=== PATIENT | female | born 1995 | race Caucasian/White ===

== ENCOUNTER → 2017-02-20 | Outpatient (CLI) | payer BC | LOC: BMCIMAGING 15:03 | PROVIDERS: ATTEND Registered Nurse General Practice | DX: R22.9 Localized swelling, mass and lump, unspecified (principal) ==

== ENCOUNTER 2017-09-24 08:16 | Day surgery (SDC) | payer BC ==
[2017-09-24] MEDS ORDERED: LR 1,000 ML IV ONE (08:37)
[2017-09-24] MEDS ORDERED: LIDOCAINE 1% 2 ML INJ ID PRN (08:37)
[2017-09-24 09:04] VITALS: PULSE 105
[2017-09-24] MEDS ORDERED: BUPIVACAINE 0.5% 30 ML SDV ONE (10:05)
[2017-09-24] MEDS ORDERED: PROPOFOL 200 MG/20 ML VIAL ONE ×5 (10:54→13:05)
[2017-09-24] MEDS ORDERED: fentaNYL 100 MCG/2 ML INJ ONE (10:54)
[2017-09-24] MEDS ORDERED: MIDAZOLAM 2 MG/2 ML VIAL ONE ×2 (11:10→11:25)
[2017-09-24] MEDS ORDERED: MIDAZOLAM 2 MG/2 ML VIAL IVP ONE (11:15)
--- NOTE | 2017-09-24 11:15 | PDANEPAE ---
ANE History of Present Illness Radial nerve release, R ANE Past Medical History - Cardiovascular History Hx Hypertension: No Hx Arrhythmias: No Hx Chest Pain: No Hx Coronary Artery / Peripheral Vascular Disease: No Hx CHF / Valvular Disease: No Hx Palpitations: No - Pulmonary History Hx COPD: No Hx Asthma/Reactive Airway Disease: No Hx Recent Upper Respiratory Infection: No Hx Oxygen in Use at Home: No Hx Sleep Apnea: No Sleep Apnea Screening Result - Last Documented: Negative - Neurologic History Hx Cerebrovascular Accident: No Hx Seizures: No Hx Dementia: No - Endocrine History Hx Diabetes: No Obesity: mild - Renal History Hx Renal Disorders: No - Liver History Hx Hepatic Disorders: No - Neurological & Psychiatric Hx Hx Neurological and Psychiatric Disorders: No - Cancer History Hx Cancer: No - Congenital Disorder History Hx Congenital Disorders: No - GI History GERD: no Hx Gastrointestinal Disorders: No - Other Health History Other Health History: Wartenberg syndrome-R wrist pain - Chronic Pain History Chronic Pain: No - Surgical History Prior Surgeries: mole excised L arm at plastic surgeon's office (local) ANE Review of Systems Review of Systems: - Exercise capacity METS (RN): 5 METS ANE Patient History - Allergies Allergies/Adverse Reactions: No Known Allergies Allergy (Verified 09/23/17 17:53) - NPO status NPO Since - Liquids (Date): 09/24/17 NPO Since - Liquids (Time): 06:30 NPO Since - Solids (Date): 09/23/17 NPO Since - Solids (Time): 20:00 - Anes Hx Hx Anesthesia Complications (with details): no prior general anesthesia - Smoking Hx Smoking Status: Never smoked Marijuana use: No - Alcohol Use Alcohol Use: Occasionally (1 drink/week) - Family Anes Hx Family Anes Hx: none Family Hx Anesthesia Complications: none ANE Labs/Vital Signs - Vital Signs Blood Pressure: 125/86 Heart Rate: 105 Respiratory Rate: 20 O2 Sat (%): 96 Height: 167.64 cm Weight: 77.111 kg ANE Physical Exam - Airway Neck exam: FROM Mallampati Score: Class 1 Mouth exam: normal dental/mouth exam (R upper front crown) - Pulmonary Pulmonary: clear to auscultation - Cardiovascular Cardiovascular: regular rate and rhythym - ASA Status ASA Status: I ANE Anesthesia Plan Regional Anesthesia: single shot NB (axillary BP nerve block)
[2017-09-24] MEDS ORDERED: LIDOCAINE 2% 5 ML SDV ONE ×4 (11:17)
[2017-09-24] MEDS ORDERED: DEXAMETHASONE 4 MG/ML VIAL IVP PRN (13:22)
[2017-09-24] MEDS ORDERED: NALOXONE HCL 0.4 MG/ML INJ IVP PRN (13:22)
[2017-09-24] MEDS ORDERED: fentaNYL 100 MCG/2 ML INJ IVP PRN (13:22)
--- NOTE | 2017-09-24 14:01 | POSTANESTH ---
Post Anesthetic Evaluation Cardiovascular Status: Normal, Stable Respiratory Status: Normal, Stable Level of Consciousness/Mental Status: Can Participate in Eval Pain Control: Adequate, Prn Tx Ordered Nausea/Vomiting Control: Adequate, Prn Tx Ordered Complications Possibly Related to Anesthesia: None Noted
[2017-09-24 14:32] VITALS: TEMP 97.7
[2017-09-24 14:50] VITALS: BP 127/80; RESP 18; O2SAT 95
--- NOTE | 2017-09-25 10:25 | GOP ---
[f rep st] OPERATIVE REPORT DATE OF OPERATION: SURGEON: Rick Mas MD ANESTHESIA: Brachial plexus block and MAC. PREOPERATIVE DIAGNOSIS: 1. De Quervain syndrome. 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 POSTOPERATIVE DIAGNOSIS: 1. De Quervain syndrome. 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 PROCEDURE PERFORMED: FINDINGS: ESTIMATED BLOOD LOSS: 5 cc. INDICATIONS: The patient is a 22-year-old female who initially presented to the clinic with pain ove r the radial side of her hand and wrist. 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 On examination, the patient had a Tinel in the midfor earm at the approximate site where the pierces the fascia. Patient has tenderness over th e 1st dorsal compartment. She had some relief with an injection over the first dorsal compartment; h owever, she had persistent symptoms. Carpal tunnel injection did not help her symptoms. EMG did not show a compression in the cervical spine, did not show any compression in the carpal tunnel, and shahnaz gnostic injection at the site of her max Tinel relieved her symptoms completely for 24 hours. She wa s thus diagnosed with Wartenberg syndrome, along with a de Quervain syndrome which had failed conserv ative treatment. The symptoms were affecting her school work, as she was having a lot of difficulty writing. She was thus indicated for operative management. I discussed with the patient at length th e risks and benefits of surgery. The risks of surgery include pain, bleeding, infection, worsening o r persistent pain, damage to surrounding structures, need for further or secondary procedures. She u nderstood the risks and wished to proceed. DESCRIPTION OF PROCEDURE: The patient was seen in the preoperative holding area. She was allowed to ask any questions and all of her questions were answered. Consent was signed. Site was marked. Sh jeniffer did not have a distinct Tinel today; however, she continued to have a lot of pain in the forearm to palpation and had previous Tinel and the area of max pain was marked. She was then taken to the ope rative suite. Care was taken to transfer her from the gurney to the operating table. Care was taken to pad all bony prominences. Upper extremity was prepped and draped in the usual sterile fashion. Esmarch was used to exsanguinate the right upper extremity and the tourniquet was inflated to 250 mmH g. Time-out was called including surgical and anesthesia teams, confirming the surgical site and the procedure to be performed. We first performed the de Quervain's portion of the procedure and approx imately 2 cm long incision just 1 cm proximally from the radial styloid was made in the wrist. Small branches of the distal branch of the radial nerve were identified here and they were protected at al l times, taking care to gently retract the sheath over the 1st dorsal compartment was identified. Th is was longitudinally incised at its dorsal margin with a knife. The EPB and the EPL were taken out of the sheath. There was some synovitis which was sheath of the EPL. carefull y dissected down protecting all vital structures. The ECRL and brachioradialis tendons we re identified. The nerve could be seen piercing the fascia between the 2 tendons. It was followed d istally and care was taken to ensure it was completely free distally. Proximally, lifting up the bra chioradialis tendon, it was clear that the nerve was at this point essentially scarred down to it and the brachioradialis tendon had immense amount of tension and pressure over the nerve. This was meti culously dissected away from the brachioradialis tendon, taking care to protect that nerve. The tend on was lifted up and was dissected free from its underside and then proximally. Care was taken to en sure that it was completely freed up. At this point, the tendon back down, there was cam rly a lot of pressure. The tendon was sliding onto the nerve and decision was made to perform a rele asing of pressure over the nerve. The tendon was under quite dramatic tension, resulting in . This was tendon potential recurrent scarring and decision was ma de to use NeuraGen tube, which was available, to wrap the nerve at that point where it was vulnerable to scarring to prevent this in the future. A 3 mm tube was used. This was to use as a n erve wrap, as per the Neuro[employer] specifications for the nerve wraps. This was then wrapped around the nerve and the 2-0 nylon sutures were then used to tag the tendons back together. Care was then taken to ensure the nerve itself was not violated, with the nerve wrapped in place. The tourniquet was le t down. All bleeding was controlled. All wounds were closed in layered fashion with a 4-0 Monocryl. Sterile dressing was applied. Patient was placed in thumb spica splint, awakened from sedation and taken to the PACU in stable condition. POSTOPERATIVE CONDITION: Stable. POSTOPERATIVE PLAN: The patient will follow up in the clinic in 10 to 14 days. She ; dunham gopal, no strenuous activity for the next approximately a month, and decision will be made whether she . Continue to work on movement of her wrist and fingers. /[id number]/MODL
== END 2017-09-24 14:49 | disposition home or self-care (01) ==
LOC: FSGY 08:16
PROVIDERS: ATTEND Orthopaedic Surgery Hand Surgery
PROC: 01Q60ZZ Repair Radial Nerve, Open Approach (ICD-10-PCS; principal; 2017-09-24 10:15)
DX: M65.4 Radial styloid tenosynovitis [de Quervain] (principal); G58.9 Mononeuropathy, unspecified
CPT/HCPCS: C9352; J0171; J2250; J2704; J3010

== ENCOUNTER → 2017-11-22 | Outpatient (CLI) | payer BC | LOC: FIMAGING 15:35 | PROVIDERS: ATTEND Obstetrics & Gynecology | DX: Z03.89 Encounter for observation for other suspected diseases and conditions ruled out (principal) ==

== ENCOUNTER → 2018-08-08 | Outpatient (CLI) | payer BC ==
[~2018-08-08] MED LIST: GADOBUTROL 10 ML VIAL IVP ONE
== END ==
LOC: FIMAGING 06:44
PROVIDERS: ATTEND Orthopaedic Surgery Hand Surgery
DX: M25.531 Pain in right wrist (principal); I77.9 Disorder of arteries and arterioles, unspecified
CPT/HCPCS: A9585

== ENCOUNTER → 2018-09-04 | Outpatient (CLI) | payer BC | LOC: FIMAGING 16:13 | PROVIDERS: ATTEND Obstetrics & Gynecology | DX: R10.2 Pelvic and perineal pain (principal); Z97.5 Presence of (intrauterine) contraceptive device ==

== ENCOUNTER 2018-09-08 15:45 | Observation (INO) | payer BC ==
[~2018-09-08 15:45] MED LIST changes: -GADOBUTROL 10 ML VIAL IVP ONE; +IOPAMIDOL (ISOVUE-300) 100 ML BTL ONE
[2018-09-08] MEDS ORDERED: ONDANSETRON 4 MG/2 ML VIAL ONE ×3 (16:09→19:16)
--- NOTE | 2018-09-08 16:10 | EDPHY ---
General - History Smoking Status: Never smoked Time Seen by Provider: 09/08/18 16:03 Narrative: CHIEF COMPLAINT: Abdominal pain, nausea vomiting HISTORY OF PRESENT ILLNESS: Patient presents with complaints of abdominal pain, nausea vomiting the past few days with a reportedly positive CT scan prior to arrival. She has had right -sided abdominal pain for 2-3 days. It has been steadily worsening, now severe , 9/10. Associated with nausea and 1 episode of vomiting last night. Associated with decreased appetite. No fever. No chest pain shortness of breath. She saw her primary care physician, and laboratory studies, ultrasound and CT scan were performed earlier today. CT scan results include acute appendicitis with possible rupture. She was contacted by her primary care physician to return here for surgical intervention. She has no previous abdominal surgeries. REVIEW OF SYSTEMS: 10 systems were reviewed and negative with the exception of the elements mentioned in the history of present illness. PCP: Dr. Dee Sanders SPECIALISTS: None PAST MEDICAL HISTORY: PCOS PAST SURGICAL HISTORY: Right upper extremity orthopedic surgery SOCIAL HISTORY: Nonsmoker. 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 Nontoxic Head: normocephalic, atraumatic Eyes: Pupils equal and round, no conjunctival pallor or injection ENT, Mouth: Mucous membranes moist Neck: Normal inspection, supple, non-tender Respiratory: Lungs are clear to auscultation Cardiovascular: Regular rate and rhythm Gastrointestinal: Abdomen is soft nondistended. There is point tenderness in right lower quadrant. Positive McBurney. 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 No guarding. Localized peritonitis. No CVA tenderness. Bowel sounds present Skin: Warm and dry, no rash DIFFERENTIAL DIAGNOSES: Including but not limited to acute appendicitis, ruptured appendicitis, appendicitis with abscess MDM: 4:13 p.m. Right lower quadrant abdominal pain with nausea vomiting and CT scan prior to arrival the confirms acute appendicitis with possible rupture. Vital signs are within normal limits. She does not meet SIRS criteria. She is in no acute distress. She is awake alert. No acute distress but she has been NPO since last night at 6:00 p.m.. I discussed the case with the surgeon Dr. Vu. He notifies me that the OR is ready for her 5:30 p.m. And like her to be sent to preop. Were administered IV fluid, Rocephin, Flagyl, morphine and Zofran. HCG will be sent as this was not tested earlier today. The remainder of the labs are documented here. She will be transported to preop stable condition. SUPERVISION: This patient was independently evaluated without direct involvement of or examination by the attending physician. CONSULTATION: General surgery (Mohsen Pinzon) Medical Decision Making: I did not see this patient while she was in the emergency department. However her care was discussed with the PA while the patient was in the department. I agree with treatment plan and management (Suleiman Mcdermott) - Objective Vital Signs: Initial Vital Signs Temperature (C) 37.1 C 09/08/18 15:55 Heart Rate 94 09/08/18 15:55 Respiratory Rate 17 09/08/18 15:55 Blood Pressure 116/91 H 09/08/18 15:55 O2 Sat (%) 94 09/08/18 15:55 O2 Delivery Mode Room Air Allergies/Adverse Reactions: No Known Allergies Allergy (Verified 09/08/18 15:55) Home Medications: Medication Instructions Recorded SUMAtriptan [Imitrex 25 MG (*)] 25 mg PO Q2H PRN 09/08/18 Spironolactone 100 mg PO DAILY 09/08/18 metFORMIN HCL [Glucophage 500 mg 1,000 mg PO BIDMEAL 09/08/18 (*)] Medications Given: Discontinued Medications Bupivacaine HCl (Sensorcaine 0.5% Vial) Confirm Administered Dose 30 ml .ROUTE .STK-MED ONE Stop: 09/08/18 17:18 Last Admin: 09/08/18 18:04 Dose: 30 ml Fentanyl (Sublimaze) 25 - 100 mcg IVP Q5M PRN PRN Reason: PACU, IMMEDIATE Pain control Stop: 09/08/18 18:22 Last Admin: 09/08/18 19:32 Dose: 50 mcg Sodium Chloride (Ns) 1,000 mls @ 0 mls/hr IV EDNOW ONE; Wide Open PRN Reason: Protocol Stop: 09/08/18 16:12 Last Admin: 09/08/18 16:15 Dose: 1,000 mls Ceftriaxone Sodium/Dextrose (Rocephin 1 Gm (Premix)) 50 mls @ 100 mls/hr IV EDNOW ONE PRN Reason: Protocol Stop: 09/08/18 16:41 Last Admin: 09/08/18 16:26 Dose: 50 mls Metronidazole/Sodium Chloride (Flagyl 500 Mg (Premix)) 100 mls @ 100 mls/hr IV EDNOW ONE PRN Reason: Protocol Stop: 09/08/18 17:12 Last Admin: 09/08/18 16:26 Dose: 100 mls Midazolam HCl (Versed) 2 mg IVP ONCALL ONE Stop: 09/08/18 17:14 Last Admin: 09/08/18 17:31 Dose: 2 mg Morphine Sulfate (Morphine) 4 mg IVP EDNOW ONE Stop: 09/08/18 16:12 Last Admin: 09/08/18 16:25 Dose: 4 mg Ondansetron HCl (Zofran) 4 mg IVP EDNOW ONE Stop: 09/08/18 16:12 Last Admin: 09/08/18 16:16 Dose: 4 mg Ondansetron HCl (Zofran) 2 - 4 mg IVP Q10M PRN PRN Reason: PACU, Nausea/Vomiting Stop: 09/08/18 18:23 Last Admin: 09/08/18 19:18 Dose: 4 mg Departure - Departure Disposition: [facility] Acute Clinical Impression: Acute appendicitis Qualifiers: Acute appendicitis type: with localized peritonitis Appendicitis gangrene presence: without gangrene Appendicitis perforation presence: unspecified whether perforation present Appendicitis abscess presence: without abscess Qualified Code(s): K35.30 - Acute appendicitis with localized peritonitis, without perforation or gangrene
[2018-09-08] MEDS ORDERED: NS 1,000 ML IV ONE (16:11)
[2018-09-08] MEDS ORDERED: ONDANSETRON 4 MG/2 ML VIAL IVP ONE (16:11)
[2018-09-08] MEDS ORDERED: MIDAZOLAM 2 MG/2 ML VIAL IVP ONE (17:13)
--- NOTE | 2018-09-08 17:14 | PDANEPAE ---
ANE Past Medical History - Cardiovascular History Hx Hypertension: No Hx Arrhythmias: No Hx Chest Pain: No Hx Coronary Artery / Peripheral Vascular Disease: No Hx CHF / Valvular Disease: No Hx Palpitations: No - Pulmonary History Hx COPD: No Hx Asthma/Reactive Airway Disease: No Hx Recent Upper Respiratory Infection: No Hx Oxygen in Use at Home: No Hx Sleep Apnea: No - Neurologic History Hx Cerebrovascular Accident: No Hx Seizures: No Hx Dementia: No - Endocrine History Hx Diabetes: No - Renal History Hx Renal Disorders: No - Liver History Hx Hepatic Disorders: No - Neurological & Psychiatric Hx Hx Neurological and Psychiatric Disorders: No - Cancer History Hx Cancer: No - Congenital Disorder History Hx Congenital Disorders: No - GI History Hx Gastrointestinal Disorders: No - Other Health History Other Health History: Wartenberg syndrome-R wrist pain - Chronic Pain History Chronic Pain: No - Surgical History Prior Surgeries: mole excised L arm at plastic surgeon's office (local) ANE Review of Systems Review of Systems: ANE Patient History - Allergies Allergies/Adverse Reactions: No Known Allergies Allergy (Verified 09/08/18 15:55) - Home Medications Home Medications: SUMAtriptan [Imitrex 25 MG (*)] 25 mg PO Q2H PRN 09/08/18 [Last Taken Unknown] Spironolactone 100 mg PO DAILY 09/08/18 [Last Taken 09/07/18] metFORMIN HCL [Glucophage 500 mg (*)] 1,000 mg PO BIDMEAL 09/08/18 [Last Taken 09/07/18 09:00] - NPO status NPO Since - Liquids (Date): 09/08/18 NPO Since - Liquids (Time): 10:30 NPO Since - Solids (Date): 09/07/18 NPO Since - Solids (Time): 19:00 - Smoking Hx Smoking Status: Never smoked - Family Anes Hx Family Hx Anesthesia Complications: none ANE Labs/Vital Signs - Vital Signs Blood Pressure: 132/86 Heart Rate: 84 Respiratory Rate: 16 O2 Sat (%): 97 Height: 167.64 cm Weight: 79.379 kg ANE Physical Exam - Airway Neck exam: FROM Mallampati Score: Class 2 Mouth exam: normal dental/mouth exam - Pulmonary Pulmonary: no respiratory distress - Cardiovascular Cardiovascular: regular rate and rhythym - ASA Status ASA Status: I, E ANE Anesthesia Plan Anesthesia Plan: general endotracheal anesthesia
[2018-09-08] MEDS ORDERED: fentaNYL 100 MCG/2 ML INJ ONE ×2 (17:16→19:16)
[2018-09-08] MEDS ORDERED: LIDOCAINE 2% 100 MG/5 ML SYR ONE (17:17)
[2018-09-08] MEDS ORDERED: PROPOFOL 200 MG/20 ML VIAL ONE (17:17)
[2018-09-08] MEDS ORDERED: METOCLOPRAMIDE 10 MG/2 ML VIAL ONE (17:17)
[2018-09-08] MEDS ORDERED: BUPIVACAINE 0.5% 30 ML SDV ONE (17:17)
[2018-09-08] MEDS ORDERED: DEXAMETHASONE 4 MG/ML VIAL ONE ×2 (17:17)
[2018-09-08] MEDS ORDERED: ROCURONIUM 50 MG/5 ML VIAL ONE (17:17)
[2018-09-08] MEDS ORDERED: NALOXONE HCL 0.4 MG/ML INJ IVP PRN ×2 (17:22→18:36)
[2018-09-08] MEDS ORDERED: HYDROmorphONE/DILAUDID 2 MG/ML INJ IVP PRN (17:22)
[2018-09-08] MEDS ORDERED: MEPERIDINE 25 MG/0.5 ML AMP IVP PRN (17:22)
[2018-09-08] MEDS ORDERED: ALBUTEROL 3 ML DEYVIAL IH PRN (17:22)
--- NOTE | 2018-09-08 17:31 | PDGENHP ---
History & Physical Chief Complaint: Abdominal pain History of Present Illness: 4 day h/o N/V, pain started yesterday. Epigastric pain migrating to RLQ. Seen by PCP and CT ordered showing inflamed appendix. Prior h/o abdominal pain with ovarian cysts. No ill contacts. Denies F/C. Pertinent Past, Social, Family History: H/o PCOS on metformin. H/o R wrist surgery. NKDA. NS/ND Relevant Physical Exam: Alert, NAD. Abd soft, mod TTP RLQ. + guarding, no rebound. RRR. CTA B Cardiorespiratory Assessment: As above. Risks/benefits of laparoscopic appendectomy explained. Risks of not operating discussed. Questions answered.
[2018-09-08] MEDS ORDERED: KETOROLAC 30 MG/1 ML SDV ONE (17:36)
[2018-09-08] MEDS ORDERED: GLYCOPYRROLATE 0.2 MG/1 ML VIAL ONE ×2 (17:49)
[2018-09-08] MEDS ORDERED: NEOSTIGMINE METHYLSULFATE 5 MG/5 ML SYR ONE (17:49)
--- NOTE | 2018-09-08 18:29 | POSTOPPROG ---
Post Op Note Date of Operation: 09/08/18 Surgeon: Dayron Vu Anesthesiologist: Dr. Waite Anesthesia: GET(General Endotracheal) Pre-op Diagnosis: Appendicitis Post-op Diagnosis: same Procedure: Lap appy Inf/Abcess present in the surg proc area at time of surgery?: Yes Depth: Organ Space EBL: Minimal
[2018-09-08] MEDS ORDERED: oxyCODONE IR 5 MG TAB PO PRN (18:36)
[2018-09-08] MEDS ORDERED: HYDROCODONE/APAP 5/325 TAB PO PRN (18:36)
[2018-09-08] MEDS ORDERED: ACETAMINOPHEN 500 MG TAB PO PRN (18:36)
--- NOTE | 2018-09-08 18:37 | POSTANESTH ---
Post Anesthetic Evaluation Cardiovascular Status: Similar to Pre-Op Cond Respiratory Status: Similar to Pre-op Cond. Level of Consciousness/Mental Status: Mildly Sleepy, Arousable Pain Control: Adequate, Prn Tx Ordered Nausea/Vomiting Control: Adequate, Prn Tx Ordered Complications Possibly Related to Anesthesia: None Noted
[2018-09-08] MEDS: ONDANSETRON 4 MG/2 ML VIAL IVP PRN ×3 (18:40→20:44)
[2018-09-08] MEDS ORDERED: PROMETHAZINE HCL 25 MG/ML INJ IVP PRN (19:14)
[2018-09-08] MEDS: fentaNYL 100 MCG/2 ML INJ IVP PRN ×2 (19:20→19:32)
[2018-09-08] MEDS: OXYCODONE/APAP 5/325 TAB PO PRN (23:36)
--- NOTE | 2018-09-09 01:27 | GOP ---
DATE OF OPERATION: 09/08/2018 SURGEON: Scottie Vu MD ANESTHESIA: General endotracheal anesthesia. ANESTHESIOLOGIST: Gonsalo Waite MD. PREOPERATIVE DIAGNOSIS: Acute appendicitis. POSTOPERATIVE DIAGNOSIS: Acute appendicitis. PROCEDURE PERFORMED: Laparoscopic appendectomy. FINDINGS: Patient had acute appendicitis with no evidence of rupture. She had a small amount of karely ctive fluid that was aspirated. No significant ovarian cyst was identified. The potential hemangiom a on the liver was not visualized. ESTIMATED BLOOD LOSS: 20 cc. INDICATIONS: 23-year-old female with a history of abdominal pain. CT scan demonstrated appendicitis . Risks and benefits of the procedure were discussed with the patient. Her questions were answered. She wished proceed. DESCRIPTION OF PROCEDURE: The patient was in the supine position. After the induction of adequate g eneral endotracheal anesthesia, the patient was prepped and draped in the standard surgical fashion. Marcaine 0.5% was injected throughout the infraumbilical area and a 5-mm incision was made. The abd ominal wall was elevated and the Veress needle was inserted. After noting proper pressures, the abdo men was insufflated with carbon dioxide. A 5-mm trocar was passed and the camera followed. There wa s no apparent damage with trocar placement. Two more ports were placed, one 5-mm port in the suprapu bic midline and one 12-mm port in the left lower quadrant. These were both placed under direct visio n after injecting 0.5% Marcaine for local anesthesia. The abdomen was inspected. The base of the appendix was then dissected. A window was opened in the mesentery using blunt dissection. An Endo JOVON stapler with a vascular load was passed across the mes oappendix and fired. A bowel load was then passed across the base of the appendix and fired. The te rminal ileum was seen to be clear of these firings. The appendix was placed into an Endo Catch bag a nd withdrawn through the 12-mm port. The abdomen was then inspected. Good hemostasis was noted. The fascia at the 12-mm port site was cl osed using 0 Vicryl in a [id number] fashion. The wounds were thoroughly irrigated and the skin at all sites was closed with 4-0 Monocryl in a subcuticular stitch. The wounds were sterilely dresse d. The patient was extubated and taken to the PACU in stable condition. COMPLICATIONS: None. DRAINS: None. /[id number]/MODL
[2018-09-09 05:32] VITALS: BP 119/71
[2018-09-09] MEDS: OXYCODONE/APAP 5/325 TAB PO PRN ×2 (05:37→11:29)
[2018-09-09] MEDS: ONDANSETRON 4 MG/2 ML VIAL IVP PRN (09:56)
--- NOTE | 2018-09-09 09:57 | ASMTCMCOM ---
CM Note CM Note Notes: Chart reviewed. Patient s/p appendectomy. Medically cleared for discharge to home. No needs identified. CM availble should needs arise. Plan: DC home no needs. Date Signed: 09/09/2018 09:57 AM Electronically Signed By:Ashley Justice RN
--- NOTE | 2018-09-09 11:32 | ASMTLACE ---
LACE Length of stay for Answers: Less than 1 day current admission Acuity / Level of Answers: No Care: Did the patient have an inpatient admission? Comorbidities - select Answers: Opioid dependence all that apply / Chronic pain # of Emergency department Answers: 1-2 visits in the last 6 months Score: 5 Date Signed: 09/09/2018 11:31 AM Electronically Signed By:Ashley Justice RN
--- NOTE | 2018-09-15 19:47 | GDS ---
PRINCIPAL DIAGNOSIS: Acute appendicitis. PRINCIPAL PROCEDURE: Laparoscopic appendectomy. OPERATING/ADMITTING PHYSICIAN: Dr. Vu. INDICATIONS FOR ADMISSION: This is a 23-year-old female with a history of abdominal pain. CT scan d emonstrated appendicitis. Please see the history and physical for full details of admission. HOSPITAL COURSE: On 09/08/2018, the patient underwent a laparoscopic appendectomy. There were no co mplications during the operation. The patient was admitted to the Medical/Surgical unit. There, she did well, was gradually advanced in her diet. By 09/09/2018, she was ambulating, voiding, and dheeraj ating p.o. Pain was controlled on p.o. pain medications. She was discharged home and given extensiv e instructions regarding diet and exercise advancement. She will follow up in 2 weeks. /[id number]/MODL
== END 2018-09-09 11:50 | disposition home or self-care (01) ==
LOC: EDSTATUS 18:00 → F1N 19:54
PROVIDERS: ADMIT Surgery; ATTEND Surgery
PROC: 0DTJ4ZZ Resection of Appendix, Percutaneous Endoscopic Approach (ICD-10-PCS; principal; 2018-09-08 16:45)
DX: K35.80 Unspecified acute appendicitis (principal); Z23 Encounter for immunization; Z87.42 Personal history of other diseases of the female genital tract
CPT/HCPCS: 44970; 74177; 90471; 96374; 96375; 99285; G0378; G0008; J0696; J1100; J1885; J2001; J2250; J2270; J2405; J2704; J2710; J2765; J3010; Q9967